=== PATIENT | male | born 1975 | race Caucasian/White ===

== ENCOUNTER 2017-11-22 06:39 | Inpatient (IN) | payer OTHER ==
[2017-11-22 06:49] VITALS: BMI 28.3
[2017-11-22] MEDS ORDERED: Bupivacaine HCl 0.25% PF (30 ml) Inj ONE (07:06)
[2017-11-22] MEDS ORDERED: Absorbable Gelatin Sponge Size 100 ONE (07:06)
[2017-11-22] MEDS ORDERED: Thrombin Topical 5,000 Int Units Spray Kit ONE (07:07)
[2017-11-22] MEDS ORDERED: Midazolam 2 MG/2 ML VIAL ONE (07:10)
[2017-11-22] MEDS ORDERED: Succinylcholine 200 mg/10 ml Inj IV ONE (07:10)
[2017-11-22] MEDS ORDERED: Lidocaine 4% (Laryng-O-Jet) Kit MM ONE (07:10)
[2017-11-22] MEDS ORDERED: Propofol 10 mg/ml Inj (20 ML) ONE (07:10)
[2017-11-22] MEDS ORDERED: Lidocaine 1% 5ml Abboject IV ONE (07:10)
[2017-11-22] MEDS ORDERED: Dexamethasone 4 mg/1 ml ONE (07:10)
[2017-11-22] MEDS ORDERED: Sterile Water 10 ML IV ONE (07:13)
[2017-11-22] MEDS ORDERED: Vecuronium 10 mg Inj ONE (07:13)
[2017-11-22] MEDS ORDERED: Neostigmine 1:1000 (1 mg/ml) Inj ONE (07:14)
--- NOTE | 2017-11-22 07:42 | CP.PCM.HP ---
History of Present Illness - History of Present Illness History of Present Illness: This is a 40 y/o male who suffered from a work related injury in 2016 in which he fell off a latter landing on his back. Since then he has been having progressive LBP that has incapacitated him and left him unable to perform. His LBP is associated with LLE radiculopathy, weakness and paresthesias down to the calf. He has been followed since his accident by Dr. Erickson in which a conservative management route and even a one level micro lami/discectomy was pursued however he has failed conservative measures and at this point the symptoms have increased in severity where he is seeking surgical intervention His ambulation and daily activities are limited 2/2 the above. Denies urinary or bladder incontinence. Present on Admission - Present on Admission Any Indicators Present on Admission: No Review of Systems - Neurological Neurological: As Per HPI Past Patient History - Past Medical History & Family History Past Medical History?: No - Past Social History Smoking Status: Smoker Currrent Status Unknown - MUSCULOSKELETAL/RHEUMATOLOGICAL Hx Musculoskeletal Disorders: Yes Hx Back Pain: Yes - PSYCHIATRIC Hx Emotional Abuse: No Hx Physical Abuse: No - SURGICAL HISTORY Hx Surgeries: Yes Other/Comment: DISCECTOMY - ANESTHESIA Hx Anesthesia: Yes Hx Anesthesia Reactions: No Hx Malignant Hyperthermia: No Has any member of the family had a problem w/ anesthesia?: No Meds Allergies/Adverse Reactions: Allergies Allergy/AdvReac Type Severity Reaction Status Date / Time No Known Allergies Allergy Verified 11/22/17 06:48 Physical Exam - Back Exam Back exam: muscle spasm, NORMAL INSPECTION - Neurological Exam Neurological exam: Motor Sensory Deficit (LLE: 4/5 , pain ilicited, minal with quads. Sensation decreased on LLE thigh to calf . Positive SLR BL L> R ) Results - Vital Signs Recent Vital Signs: Last Vital Signs Temp 98.1 F 11/22/17 07:24 Pulse 90 11/22/17 07:28 Resp 18 11/22/17 07:24 BP 133/86 11/22/17 07:24 Pulse Ox 98 11/22/17 07:24 - Labs Labs: Laboratory Results - last 24 hr 11/22/17 07:05 BBK History Checked No verified bt - Imaging and Cardiology MRI L spine: Status: Image reviewed by me, Report reviewed by me Assessment & Plan - Assessment and Plan (Free Text) Assessment: Patient presented to Dr. Erickson with above symptoms and complaints Images reviewed with patient in the office. Risks, benefits and alternatives explained, risks such as infection, hemorrhage , CSF leak, weakness, numbness, failure of surgery or need for further surgery explained. All questions answered, patient wishes to proceed with proposed procedure. Plan: Lumbar PSF L5-S1 with left decompressive laminotomy
[2017-11-22] MEDS ORDERED: Lactated Ringer's 1,000 ML IV ONE (07:45)
[2017-11-22] MEDS ORDERED: Lidocaine 2% w Epi 1:200,000 Pf Inj IJ ONE (08:03)
[2017-11-22] MEDS ORDERED: HEMOSTATIC MATRIX 10 ML DIS.NEEDLE TOP ONE (08:45)
[2017-11-22] MEDS ORDERED: Bupivacaine 0.5% Inj(30mL) IJ ONE (09:40)
[2017-11-22] MEDS: HYDROmorphone 0.5 mg/0.5 ml ISec IVP PRN ×2 (10:10→10:30)
--- NOTE | 2017-11-22 10:29 | PCM.SURG1 ---
Surgeon's Initial Post Op Note - Surgeon's Notes Surgeon: Benson Erickson MD [employer] Lay Out Worker: Lev ROSE , Medhat ROSE Type of Anesthesia: General Endo Pre-Operative Diagnosis: Lumbar HNP Operative Findings: as above Post-Operative Diagnosis: same Operation Performed: Posterior lumbar intstrumented fusion L5-S1 decompressive laminotomy L5-S1 Specimen/Specimens Removed: none Estimated Blood Loss: EBL {In ML}: 150 Blood Products Given: N/A Drains Used: Harvinder Cunha (x2) Post-Op Condition: Good Date of Surgery/Procedure: 11/22/17 Time of Surgery/Procedure: 07:30
[2017-11-22] MEDS ORDERED: oxyCODONE 5 mg Immediate Release Tab PO PRN (10:34)
[2017-11-22] MEDS ORDERED: oxyCODONE 10 mg Immediate Release Tab PO PRN (10:40)
--- NOTE | 2017-11-22 12:02 | CP.PCM.CON ---
History of Present Illness - History of Present Illness History of Present Illness: 40 yo ,m, PMhx/o HLD, Chronic lumbar pain with radiculopathy s/p a fall at work in 2016 in which he fell down from a ladder, landing on his back. Since then patient has been with chronic lumbar pain with radiculopathy left side, associated with weakness, paresthesia down the calf left side. Patient has had f /o with Ortho Dr Pedraza with conservative management failure. Symptoms has been getting worse and patient has decided surgical intervention. Patient Seen and examined bedside after surgery today. Reports mod lumbar pain 11/30 controlled with medications. Denies fever, n,v,d,abd pain. PMD: Dr Dimas Ortho: Dr Erickson PMhx: HLD, chronic lumbar pain PSurghx: Posterior lumbar intstrumented fusion L5-S1 decompressive laminotomy L5 -S1 11/22/17 Pshx: denies ETOh, rect drugs. Smoker 4-5 cig/day x 20 years Review of Systems - Review of Systems All systems: reviewed and no additional remarkable complaints except - Cardiovascular Cardiovascular: As Per HPI - Respiratory Respiratory: As Per HPI - Gastrointestinal Gastrointestinal: As Per HPI - Musculoskeletal Musculoskeletal: Back Pain - Neurological Neurological: As Per HPI Past Patient History - Past Medical History & Family History Past Medical History?: No - Past Social History Smoking Status: Smoker Currrent Status Unknown - MUSCULOSKELETAL/RHEUMATOLOGICAL Hx Musculoskeletal Disorders: Yes Hx Back Pain: Yes - PSYCHIATRIC Hx Emotional Abuse: No Hx Physical Abuse: No - SURGICAL HISTORY Hx Surgeries: Yes Other/Comment: DISCECTOMY - ANESTHESIA Hx Anesthesia: Yes Hx Anesthesia Reactions: No Hx Malignant Hyperthermia: No Has any member of the family had a problem w/ anesthesia?: No Meds Allergies/Adverse Reactions: Allergies Allergy/AdvReac Type Severity Reaction Status Date / Time No Known Allergies Allergy Verified 11/22/17 06:48 - Medications Medications: Current Medications Acetaminophen (Tylenol 325mg Tab) 975 mg PO Q6 [facility] Cyclobenzaprine HCl (Flexeril) 5 mg PO TID PRN PRN Reason: Muscle spasm Docusate Sodium (Colace) 100 mg PO BID [facility] Lactated Ringer's (Lactated Ringer's) 1,000 mls @ 100 mls/hr IV .Q10H [facility] Vancomycin HCl 1 gm/ Sodium (Chloride) 250 mls @ 166.667 mls/hr IVPB Q12H [facility] PRN Reason: Protocol Stop: 11/22/17 14:43 Last Admin: 11/22/17 11:30 Dose: 5 mls Morphine Sulfate (Morphine) 2 mg IVP Q6 PRN PRN Reason: Pain, severe (8-10) Ondansetron HCl (Zofran Inj) 4 mg IVP Q6 PRN PRN Reason: Nausea/Vomiting Oxycodone HCl (Oxycodone Immediate Release Tab) 5 mg PO Q3 PRN PRN Reason: Pain, moderate (4-7) Oxycodone HCl (Oxycodone Immediate Release Tab) 10 mg PO Q4 PRN PRN Reason: Pain, severe (8-10) Sennosides (Senokot Tab) 17.2 mg PO HS [facility] Physical Exam - Constitutional Appears: Non-toxic, No Acute Distress - Head Exam Head Exam: ATRAUMATIC, NORMOCEPHALIC - Eye Exam Eye Exam: EOMI, Normal appearance - ENT Exam ENT Exam: Mucous Membranes Moist - Neck Exam Neck exam: Positive for: Normal Inspection - Respiratory Exam Respiratory Exam: Clear to Auscultation Bilateral. absent: Rales, Rhonchi, Wheezes - Cardiovascular Exam Cardiovascular Exam: REGULAR RHYTHM, +S1, +S2 - GI/Abdominal Exam GI & Abdominal Exam: Normal Bowel Sounds, Soft. absent: Guarding, Rebound - Extremities Exam Extremities exam: Positive for: normal inspection - Back Exam Additional comments: dressing on lower back C/D/I. 2 vac wounds with small amount hematic discharge - Neurological Exam Neurological exam: Alert, Oriented x3 - Psychiatric Exam Psychiatric exam: Normal Affect, Normal Mood - Skin Skin Exam: Normal Color Results - Vital Signs Recent Vital Signs: Last Vital Signs Temp 98.2 F 11/22/17 10:15 Pulse 81 11/22/17 10:15 Resp 18 11/22/17 10:15 BP 99/70 L 11/22/17 10:15 Pulse Ox 100 11/22/17 10:15 - Labs Labs: Laboratory Results - last 24 hr 11/22/17 11/22/17 07:05 07:30 Blood Type B POSITIVE Blood Type Confirm B POSITIVE Antibody Screen Negative BBK History Checked No verified bt Assessment & Plan - Assessment and Plan (Free Text) Plan: Assessment/Plan 1) Lumbar disc herniation s/p Posterior lumbar intstrumented fusion L5-S1 decompressive laminotomy L5-S1 POD0 -pain control morphine, oxycodone HCL -EBL 200 ml -IV fluids NS -vancomycin -f/u CBC, CMP 2) HLD -reports hx/o HLD in the past. Not on medications now. 3) DVT Prophylaxis SCD
--- NOTE | 2017-11-22 20:14 | OP ---
PROCEDURE DATE: 11/22/2017 PREOPERATIVE DIAGNOSIS: Herniated lumbar disk at L5-S1. POSTOPERATIVE DIAGNOSIS: Herniated lumbar disk at L5-S1. PROCEDURE: Left L5-S1 hemilaminotomy, medial facetectomy, decompression, L5-S1 pedicle screw fixation and instrumentation using spinal elements, L5-S1 posterolateral fusion. Fluoroscopy has been used. Microscope has been used. SURGEON: Benson Erickson MD PHOTO OPTICS TECHNICIAN: Lev Osullivan. DESCRIPTION OF PROCEDURE: The patient was brought to the operating room, anesthetized with general endotracheal anesthesia, placed in a prone position on a Harvinder table. Care was taken to protect all the pressure points. Back of the lumbar area thoroughly prepped and draped in a standard sterile manner after marking for a skin incision for a lumbar laminectomy at L5-S1. After prepping and draping the area, skin has been incised. Bleeding skin has been controlled by bipolar indoor landscape architect. After using a Bovie indoor landscape architect, paraspinal muscles had been detached and attachments of spinous, lamina at L5-S1. Identification of levels has been done with the help of fluoroscopy by using a traditional landmark, point of entry has been noted for L5-S1. Initially K-wire, later a drill has been used in order to enter the pedicles of L5-S1. Polyaxial titanium screws of spinal elements have been placed. At this point, titanium rods have been placed and cap nuts have been used in order to secure them. Under microscopic examination on the left side, by using a high-speed drill, the lamina of L5-S1, medial part of the L5-S1 have been drilled. By using a fine Kerrison punch, thinned out the lamina, medial part of the facets and ligamentum flavum has been removed, decompressing this area. Lateral aspect of facet joint and transverse process have been decorticated and demineralized bone placed in the area achieving a posterolateral fusion. After that, hemostasis was best achieved. Harvinder drain was placed in the wound and brought out through a separate stab neck skin incision. Muscles and fascia were closed with 1 Vicryl, subcutaneous with 3 Vicryl, skin had been intradermal 3 Vicryl stitches. The patient tolerated the procedure. After procedure, mobilized to the recovery room. Benson Erickson MD
[2017-11-22] MEDS: Lactated Ringer's 1,000 ML IV SCH (21:08)
[2017-11-22] MEDS ORDERED: Pneumococcal 23-Valent Vaccine IM ONE (21:55)
[2017-11-23] MEDS: Lactated Ringer's 1,000 ML IV SCH ×2 (00:50→06:32)
[2017-11-23 06:10] LABS: BASO # 0.1 K/uL (0.0-0.2); BASO % 0.4 % (0.0-2.0); EOS % 0.1 % (0.0-4.0); LYMPH # 2.6 K/uL (1.0-4.3); LYMPH % 14.5 % (20.0-40.0); MEAN CELL VOLUME 87.9 fl (80.0-94.0); MEAN CORPUSCULAR HEMOGLOBIN 29.5 pg (27.0-31.0); MEAN CORPUSCULAR HGB CONC 33.5 g/dL (33.0-37.0); MEAN PLATELET VOLUME 10.2 fl (7.2-11.7); MONO # 1.6 K/uL (0.0-0.8); MONO % 8.7 % (0.0-10.0); NEUT # 13.9 K/uL (1.8-7.0); NEUT % 76.3 % (50.0-75.0); RBC 5.1 Mil/uL (4.40-5.90); RED CELL DISTRIBUTION WIDTH 13.5 % (11.5-14.5); WHITE BLOOD COUNT 18.2 K/uL (4.8-10.8)
[2017-11-23 06:37] LABS: ALB/GLOB RATIO 1.3 (1.0-2.1); ALBUMIN 4.1 g/dL (3.5-5.0); ALT/SGPT 60 U/L (21-72); AST/SGOT 138 U/L (17-59); BLOOD UREA NITROGEN 12 mg/dl (9-20); CALCIUM 9.4 mg/dL (8.4-10.2); GFR AFRICAN-AMERICAN > 60; GFR NON-AFRICAN AMERICAN > 60
--- NOTE | 2017-11-23 08:59 | CP.PCM.PN ---
Subjective - Date & Time of Evaluation Date of Evaluation: 11/23/17 Time of Evaluation: 08:00 - Subjective Subjective: Patient seen and examined at bedside comfortable. Pain is well controlled. Garret diet well. Positive Void. Neg BM. No acute events overnight. Objective - Vital Signs/Intake and Output Vital Signs (last 24 hours): Temp Pulse Resp BP Pulse Ox 98.1 F 66 18 119/81 97 11/23/17 08:07 11/23/17 08:07 11/23/17 08:07 11/23/17 08:07 11/23/17 08:07 - Medications Medications: Current Medications Acetaminophen (Tylenol 325mg Tab) 975 mg PO Q6 [facility] Last Admin: 11/23/17 04:33 Dose: 975 mg Cyclobenzaprine HCl (Flexeril) 5 mg PO TID PRN PRN Reason: Muscle spasm Docusate Sodium (Colace) 100 mg PO BID [facility] Last Admin: 11/22/17 17:37 Dose: 100 mg Lactated Ringer's (Lactated Ringer's) 1,000 mls @ 100 mls/hr IV .Q10H [facility] Last Admin: 11/23/17 06:32 Dose: Not Given Morphine Sulfate (Morphine) 2 mg IVP Q6 PRN PRN Reason: Pain, severe (8-10) Last Admin: 11/22/17 17:21 Dose: 2 mg Ondansetron HCl (Zofran Inj) 4 mg IVP Q6 PRN PRN Reason: Nausea/Vomiting Oxycodone HCl (Oxycodone Immediate Release Tab) 5 mg PO Q3 PRN PRN Reason: Pain, moderate (4-7) Oxycodone HCl (Oxycodone Immediate Release Tab) 10 mg PO Q4 PRN PRN Reason: Pain, severe (8-10) Sennosides (Senokot Tab) 17.2 mg PO HS [facility] Last Admin: 11/22/17 21:32 Dose: 17.2 mg - Labs Labs: 11/23/17 05:00 11/23/17 05:00 - Back Exam Additional comments: Lumbar: Dressings intact will mild bloody drainage from drain sites, KELLY drains x2 intact with nild bloody drainage, mild swelling and tenderness sensation intact SP/DP/TN motor intact EHL/FHL pedal pulses intact Assessment and Plan (1) Lumbar disc herniation Assessment & Plan: POD#1 s/p Posterior lumbar fusion L5-S1 decompressive laminotomy L5-S1 -will keep drains and monitor output, will remove tomorrow AM -continue IV abx while drains in -pain control -PT/OT WBAT -above d/w Dr. Erickson in agreement Status: Acute
--- NOTE | 2017-11-23 10:11 | CP.PCM.PN ---
Subjective - Date & Time of Evaluation Date of Evaluation: 11/23/17 Time of Evaluation: 07:35 - Subjective Subjective: Patient seen and examined bedside. reports lumbar pain controlled with morphine. no overnight events. tolerating regular diet. no BM yet. denies fever , chest pain, SOB, n,v,abd pain, weakness, numbness. KELLY drainage with hematic drainage b/l. will transfer to med/surg. PT evaluation Objective - Vital Signs/Intake and Output Vital Signs (last 24 hours): Temp Pulse Resp BP Pulse Ox 98.1 F 66 18 119/81 97 11/23/17 08:07 11/23/17 08:07 11/23/17 08:07 11/23/17 08:07 11/23/17 08:07 - Medications Medications: Current Medications Acetaminophen (Tylenol 325mg Tab) 975 mg PO Q6 [facility] Last Admin: 11/23/17 09:06 Dose: 975 mg Cyclobenzaprine HCl (Flexeril) 5 mg PO TID PRN PRN Reason: Muscle spasm Docusate Sodium (Colace) 100 mg PO BID [facility] Last Admin: 11/23/17 09:08 Dose: 100 mg Lactated Ringer's (Lactated Ringer's) 1,000 mls @ 100 mls/hr IV .Q10H [facility] Last Admin: 11/23/17 06:32 Dose: Not Given Morphine Sulfate (Morphine) 2 mg IVP Q6 PRN PRN Reason: Pain, severe (8-10) Last Admin: 11/22/17 17:21 Dose: 2 mg Ondansetron HCl (Zofran Inj) 4 mg IVP Q6 PRN PRN Reason: Nausea/Vomiting Oxycodone HCl (Oxycodone Immediate Release Tab) 5 mg PO Q3 PRN PRN Reason: Pain, moderate (4-7) Oxycodone HCl (Oxycodone Immediate Release Tab) 10 mg PO Q4 PRN PRN Reason: Pain, severe (8-10) Sennosides (Senokot Tab) 17.2 mg PO HS [facility] Last Admin: 11/22/17 21:32 Dose: 17.2 mg - Labs Labs: 11/23/17 05:00 11/23/17 05:00 - Constitutional Appears: Non-toxic, No Acute Distress - Head Exam Head Exam: ATRAUMATIC, NORMOCEPHALIC - Eye Exam Eye Exam: Normal appearance - ENT Exam ENT Exam: Mucous Membranes Moist - Neck Exam Neck Exam: Normal Inspection - Respiratory Exam Respiratory Exam: Clear to Ausculation Bilateral. absent: Rales, Rhonchi, Wheezes - Cardiovascular Exam Cardiovascular Exam: REGULAR RHYTHM, +S1, +S2 - GI/Abdominal Exam GI & Abdominal Exam: Soft, Normal Bowel Sounds. absent: Tenderness - Extremities Exam Extremities Exam: Normal Capillary Refill, Normal Inspection - Back Exam Back Exam: NORMAL INSPECTION - Neurological Exam Neurological Exam: Alert, Awake, Oriented x3 Neuro motor strength exam: Left Upper Extremity: 5, Right Upper Extremity: 5, Left Lower Extremity: 5, Right Lower Extremity: 5 - Psychiatric Exam Psychiatric exam: Normal Affect, Normal Mood - Skin Skin Exam: Intact Assessment and Plan - Assessment and Plan (Free Text) Plan: Assessment/Plan 1) Lumbar disc herniation s/p Posterior lumbar intstrumented fusion L5-S1 decompressive laminotomy L5-S1 POD1 -pain control morphine, oxycodone HCL -EBL 200 ml -regular diet -noted leukocytosis. Cephazolin 1 g q8h -PT consult -transfer to [facility] -f/u CBC, CMP 2) HLD -reports hx/o HLD in the past. Not on medications now. 3) DVT Prophylaxis SCD
[2017-11-23] MEDS ORDERED: ceFAZolin 1 GM in Sodium Chloride 0.9% 100 ML IVPB SCH ×2 (11:30→21:00)
[2017-11-23 17:21] VITALS: RESP 18
[2017-11-24 07:00] LABS: HEMOGLOBIN 13.8 g/dL (12.0-18.0); MEAN CELL VOLUME 86.9 fl (80.0-94.0); MEAN CORPUSCULAR HEMOGLOBIN 29.3 pg (27.0-31.0); MEAN CORPUSCULAR HGB CONC 33.7 g/dL (33.0-37.0); RBC 4.7 Mil/uL (4.40-5.90); RED CELL DISTRIBUTION WIDTH 13.7 % (11.5-14.5); WHITE BLOOD COUNT 12.8 K/uL (4.8-10.8)
[2017-11-24 07:05] LABS: BLOOD UREA NITROGEN 14 mg/dl (9-20); CALCIUM 9.3 mg/dL (8.4-10.2); GFR AFRICAN-AMERICAN > 60; GFR NON-AFRICAN AMERICAN > 60
[2017-11-24 08:05] VITALS: BP 105/70; PULSE 85; TEMP 98.2; O2SAT 96
--- NOTE | 2017-11-24 09:51 | CP.PCM.DIS ---
Provider - Provider Date of Admission: 11/22/17 10:31 Attending physician: Gonzalo Pavon MD Primary care physician: Benson Dorado MD Time Spent in preparation of Discharge (in minutes): 20 Diagnosis - Discharge Diagnosis (1) Lumbar disc herniation Status: Acute Comment: -s/p Posterior lumbar intstrumented fusion L5-S1 decompressive laminotomy L5-S1 POD2 Hospital Course - Lab Results Lab Results: Most Recent Lab Values WBC 12.8 K/uL (4.8-10.8) H 11/24/17 05:45 RBC 4.70 Mil/uL (4.40-5.90) 11/24/17 05:45 Hgb 13.8 g/dL (12.0-18.0) 11/24/17 05:45 Hct 40.9 % (35.0-51.0) 11/24/17 05:45 MCV 86.9 fl (80.0-94.0) 11/24/17 05:45 MCH 29.3 pg (27.0-31.0) 11/24/17 05:45 MCHC 33.7 g/dL (33.0-37.0) 11/24/17 05:45 RDW 13.7 % (11.5-14.5) 11/24/17 05:45 Plt Count 212 K/uL (130-400) 11/24/17 05:45 MPV 10.2 fl (7.2-11.7) 11/23/17 05:00 Neut % (Auto) 76.3 % (50.0-75.0) H 11/23/17 05:00 Lymph % (Auto) 14.5 % (20.0-40.0) L 11/23/17 05:00 [place] % (Auto) 8.7 % (0.0-10.0) 11/23/17 05:00 Eos % (Auto) 0.1 % (0.0-4.0) 11/23/17 05:00 Baso % (Auto) 0.4 % (0.0-2.0) 11/23/17 05:00 Neut # (Auto) 13.9 K/uL (1.8-7.0) H 11/23/17 05:00 Lymph # (Auto) 2.6 K/uL (1.0-4.3) 11/23/17 05:00 [place] # (Auto) 1.6 K/uL (0.0-0.8) H 11/23/17 05:00 Eos # (Auto) 0.0 K/uL (0.0-0.7) 11/23/17 05:00 Baso # (Auto) 0.1 K/uL (0.0-0.2) 11/23/17 05:00 Sodium 141 mmol/l (132-148) 11/24/17 05:45 Potassium 3.7 MMOL/L (3.6-5.0) 11/24/17 05:45 Chloride 100 mmol/L (98-107) 11/24/17 05:45 Carbon Dioxide 30 mmol/L (22-30) 11/24/17 05:45 Anion Gap 15 (10-20) 11/24/17 05:45 BUN 14 mg/dl (9-20) 11/24/17 05:45 Creatinine 0.8 mg/dl (0.8-1.5) 11/24/17 05:45 Est GFR ( Amer) > 60 11/24/17 05:45 Est GFR (Non-Af Amer) > 60 11/24/17 05:45 Random Glucose 88 mg/dL (75-110) 11/24/17 05:45 Calcium 9.3 mg/dL (8.4-10.2) 11/24/17 05:45 Total Bilirubin 0.5 mg/dl (0.2-1.3) 11/23/17 05:00 AST 138 U/L (17-59) H 11/23/17 05:00 ALT 60 U/L (21-72) 11/23/17 05:00 Alkaline Phosphatase 55 U/L (38-126) 11/23/17 05:00 Total Protein 7.2 G/DL (6.3-8.2) 11/23/17 05:00 Albumin 4.1 g/dL (3.5-5.0) 11/23/17 05:00 Globulin 3.1 gm/dL (2.2-3.9) 11/23/17 05:00 Albumin/Globulin Ratio 1.3 (1.0-2.1) 11/23/17 05:00 Blood Type B POSITIVE 11/22/17 07:05 Blood Type Confirm B POSITIVE 11/22/17 07:30 Antibody Screen Negative 11/22/17 07:05 BBK History Checked No verified bt 11/22/17 07:05 - Hospital Course Hospital Course: 40 yo ,m, PMhx/o HLD, Chronic lumbar pain with radiculopathy s/p a fall at work in with chronic lumbar pain with radiculopathy left side admitted for Lumbar disc herniation s/p Posterior lumbar intstrumented fusion L5-S1 decompressive laminotomy L5-S1 POD2 , doing well with physical therapy, hemodynamically stable , no surgical complications. Patient seen bedside by Dr pavon. Patient clear to be discharge later during the day. F/u with Dr dorado in 7 days Discharge Exam - Head Exam Head Exam: ATRAUMATIC, NORMOCEPHALIC - Eye Exam Eye Exam: Normal appearance - ENT Exam ENT Exam: Mucous Membranes Moist - Respiratory Exam Respiratory Exam: Clear to PA & Lateral. absent: Rales, Rhonchi, Wheezes - Cardiovascular Exam Cardiovascular Exam: REGULAR RHYTHM, +S1, +S2 - GI/Abdominal Exam GI & Abdominal Exam: Normal Bowel Sounds, Soft. absent: Guarding, Rebound - Extremities Exam Extremities exam: normal inspection - Back Exam Additional comments: Dressing over lumbar spine C/D/I - Neurological Exam Neurological exam: Alert, Oriented x3 - Psychiatric Exam Psychiatric exam: Normal Affect, Normal Mood - Skin Skin Exam: Normal Color Discharge Plan - Discharge Medications Prescriptions: Cyclobenzaprine [Flexeril] 5 mg PO TID PRN #90 tab PRN Reason: Muscle Spasm Docusate [Colace] 100 mg PO DAILY #14 cap oxyCODONE/Acetaminophen [Percocet 5/325 mg Tab] 1 ea PO Q6 PRN #24 tab PRN Reason: pain - Follow Up Plan Condition: GOOD Instructions: Intervertebral Discectomy (DC), Laminectomy (DC), Postspine Surgery Precautions Additional Instructions: pt. cleared for discharge to home today by / f/u with and outpatient E rx meds sent to [facility] pharmacy cont. PT Referrals: Benson Dorado MD [Primary Care Provider] -
--- NOTE | 2017-11-24 12:07 | CP.PCM.PN ---
Subjective - Date & Time of Evaluation Date of Evaluation: 11/24/17 Time of Evaluation: 11:00 - Subjective Subjective: Patient states pain is improving. +BM x 2, denies numbness/tingling. No new complaints. Objective - Vital Signs/Intake and Output Vital Signs (last 24 hours): Temp Pulse Resp BP Pulse Ox 98.2 F 85 18 105/70 96 11/24/17 08:04 11/24/17 08:04 11/24/17 08:04 11/24/17 08:04 11/24/17 08:04 Intake and Output: 11/24/17 11/24/17 06:59 18:59 Output Total 90 Balance -90 - Medications Medications: Current Medications Acetaminophen (Tylenol 325mg Tab) 975 mg PO Q6 [facility] Last Admin: 11/24/17 10:46 Dose: 975 mg Cyclobenzaprine HCl (Flexeril) 5 mg PO TID PRN PRN Reason: Muscle spasm Docusate Sodium (Colace) 100 mg PO BID [facility] Last Admin: 11/24/17 08:37 Dose: 100 mg Morphine Sulfate (Morphine) 2 mg IVP Q6 PRN PRN Reason: Pain, severe (8-10) Last Admin: 11/22/17 17:21 Dose: 2 mg Ondansetron HCl (Zofran Inj) 4 mg IVP Q6 PRN PRN Reason: Nausea/Vomiting Oxycodone HCl (Oxycodone Immediate Release Tab) 5 mg PO Q3 PRN PRN Reason: Pain, moderate (4-7) Oxycodone HCl (Oxycodone Immediate Release Tab) 10 mg PO Q4 PRN PRN Reason: Pain, severe (8-10) Sennosides (Senokot Tab) 17.2 mg PO [facility] Last Admin: 11/23/17 21:29 Dose: 17.2 mg - Labs Labs: 11/24/17 05:45 11/24/17 05:45 - Back Exam Additional comments: drain 35cc, pulled as per Dr. Erickson incision intact, small amount sang drainage from drain site, noerythema dressing changed. - Neurological Exam Neuro motor strength exam: Left Lower Extremity: 5, Right Lower Extremity: 5 ( sensation intact L2-S1) Assessment and Plan (1) Lumbar spondylosis Assessment & Plan: POD#2 s/p Posterior lumbar fusion L5-S1 decompressive laminotomy L5-S1 -d/c home today -encourage OOB -pain control -PT/OT WBAT -above d/w Dr. Erickson, agrees with above, f/u 2 weeks Status: Acute
== END 2017-11-24 13:41 | disposition home or self-care (01) | DRG 460 ==
LOC: H.OPSURG 06:39 → H.TEL 10:31 → H.MEDSURG1 11-23 17:05
PROVIDERS: ADMIT Family Medicine; ATTEND Family Medicine
PROC: 0SG30K1 Fusion of Lumbosacral Joint with Nonautologous Tissue Substitute, Posterior Approach, Posterior Column, Open Approach (ICD-10-PCS; principal; 2017-11-22 07:45)
PROC: 3E0234Z Introduction of Serum, Toxoid and Vaccine into Muscle, Percutaneous Approach (ICD-10-PCS; 2017-11-23)
DX: M51.16 Intervertebral disc disorders with radiculopathy, lumbar region (principal); R20.2 Paresthesia of skin; Z23 Encounter for immunization; E78.5 Hyperlipidemia, unspecified; R53.1 Weakness; G89.29 Other chronic pain; F17.210 Nicotine dependence, cigarettes, uncomplicated; W11.XXXS Fall on and from ladder, sequela